=== PATIENT | female | born 1980 | race Caucasian/White ===

== ENCOUNTER 2019-09-24 14:45 | Outpatient (CLI) | payer OTHER | END 2019-09-24 20:22 | disposition home or self-care (01) | LOC: NST 14:45 | DX: Z34.83 Encounter for supervision of other normal pregnancy, third trimester (principal) ==

== ENCOUNTER 2019-10-10 16:36 | Inpatient (IN) | payer OTHER ==
[~2019-10-10] VITALS: Ht 167.6 cm; Wt 120.7 kg
[2019-10-22] MEDS ORDERED: PRENATAL CAPLE1 EAC1 PO (12:17)
== END 2019-10-24 12:27 | disposition home or self-care (01) | DRG 807 ==
LOC: LDR 10-22 06:40 → OB/GYN 10-22 06:40 → LDR 10-22 08:44 → OB/GYN 10-22 20:34
PROVIDERS: ADMIT Obstetrics & Gynecology Maternal & Fetal Medicine
PROC: 10E0XZZ Delivery of Products of Conception, External Approach (ICD-10-PCS; principal; 2019-10-22)
PROC: 10907ZC Drainage of Amniotic Fluid, Therapeutic from Products of Conception, Via Natural or Artificial Opening (ICD-10-PCS; 2019-10-22)
PROC: 0W8NXZZ Division of Female Perineum, External Approach (ICD-10-PCS; 2019-10-22)
PROC: 3E033VJ Introduction of Other Hormone into Peripheral Vein, Percutaneous Approach (ICD-10-PCS; 2019-10-22)
PROC: 4A1HXCZ Monitoring of Products of Conception, Cardiac Rate, External Approach (ICD-10-PCS; 2019-10-22)
DX: O80 Encounter for full-term uncomplicated delivery (principal); Z37.0 Single live birth; Z3A.38 38 weeks gestation of pregnancy

== ENCOUNTER 2019-10-16 16:58 | Outpatient (CLI) | payer OTHER | END 2019-10-16 18:11 | disposition home or self-care (01) | LOC: NST 16:58 | DX: Z34.83 Encounter for supervision of other normal pregnancy, third trimester (principal) ==

== ENCOUNTER → 2021-02-05 | Emergency (ER) | payer OTHER ==
[~2021-02-05] VITALS: Ht 167.6 cm; Wt 111.1 kg
[~2021-02-05] MED LIST: PRENATAL CAPLE1 EAC1 PO
== END | disposition left against medical advice (07) ==
LOC: ER 13:45
DX: K83.8 Other specified diseases of biliary tract (principal); R10.84 Generalized abdominal pain